=== PATIENT | male | born 1970 | race Caucasian/White ===

== ENCOUNTER 2018-11-13 11:11 | Emergency (ER) | payer MEDICAID ==
[~2018-11-13 11:11] MED LIST: CELEXA20 MG PO; PRINIVIL10 MG PO
[2018-11-13 11:44] VITALS: BP 135/85; BMI 57.7
[2018-11-13] MEDS ORDERED: BAYER CHEWABLE81 MG PO (11:47)
[2018-11-13] MEDS ORDERED: ZANTAC300 MG PO (11:47)
[2018-11-13] MEDS ORDERED: VITAMIN D250000 UNIT PO (11:47)
[2018-11-13] MEDS ORDERED: PREVALITE POWD231 GM PO (11:48)
[2018-11-13] MEDS ORDERED: CLARITIN 10 MG10 MG PO (11:48)
[2018-11-13 12:18] LABS: BASOPHILS 0.8 % (0-2); EOSINOPHILS 2.4 % (0-7); HEMATOCRIT 43.8 % (42.0-54.0); HEMOGLOBIN 15.1 g/dL (13.5-17.5); IMMATURE GRANULOCYTES 1.7 % (0-5); LYMPHOCYTES 35.6 % (15-50); MCH 32.1 pg (26.0-34.0); MCHC 34.5 g/dL (31.0-37.0); MCV 93.2 fL (80.0-100.0); MEAN PLATELET VOLUME 9.6 fL (7.4-10.4); MONOCYTES 7.2 % (2-11); NEUTROPHILS 52.3 % (40-80); PLATELET COUNT 164 10x3/uL (130-400); RDW 12.8 % (11.5-14.5); WBC 7.1 10x3/uL (4.8-10.8)
[2018-11-13 12:32] LABS: ALBUMIN 3.4 g/dL (3.4-5.0); ALKALINE PHOSPHATASE 69 U/L (46-116); ALT (SGPT) 74 U/L (10-68); BILIRUBIN - TOTAL 0.38 mg/dL (0.2-1.3); CALC OSMOLALITY 274 mosm/kg (275-300); CALCIUM 9.2 mg/dL (8.5-10.1); CARBON DIOXIDE 27.9 mmol/L (21.0-32.0); CHLORIDE - SERUM 103 mmol/L (98-107); CREATININE - SERUM 1.1 mg/dL (0.6-1.3); GLUCOSE 98 mg/dL (74-106); POTASSIUM - SERUM 4.4 mmol/L (3.5-5.1); SODIUM 138 mmol/L (136-145); UREA NITROGEN 11 mg/dL (7-18); eGFR NON AFRICAN AMERICAN 75 mL/min (90-120)
[2018-11-13 14:28] LABS: APPEARANCE CLEAR (CLEAR); COLOR YELLOW (YELLOW); GLUCOSE NEGATIVE (NEGATIVE); KETONE NEGATIVE (NEGATIVE); NITRITE NEGATIVE (NEGATIVE); PROTEIN NEGATIVE (NEGATIVE); UROBILINOGEN NORMAL (NORMAL)
[2018-11-13 14:29] LABS: BILIRUBIN NEGATIVE (NEGATIVE)
[2018-11-13] MEDS ORDERED: VIBRAMYCIN 100100 MG PO (15:26)
== END 2018-11-13 16:14 | disposition home or self-care (01) ==
LOC: D.ER 11:11
PROVIDERS: Emergency Medicine
DX: R50.9 Fever, unspecified (principal)

== ENCOUNTER 2019-08-10 09:19 | Outpatient (CLI) | payer MEDICAID ==
[~2019-08-10] VITALS: Ht 180.3 cm; Wt 177.3 kg
--- NOTE | ~2019-08-10 | HEMODYNAMI ---
PATIENT:LULÚ NAJERA JR MEDICAL RECORD: [id number] : 66 LOCATION:D.CAT ADMISSION DATE: 08/10/19 Generatedon:08/10/201911:44 Patient name: LULÚ NAJERA Patient #: [id number] SSN: [id number] : 1970 Date of study: 08/10/2019 Page: Of Hemodynamic Procedure Report Patient Data Patient Demographics Procedure consent was obtained First Name: LULÚ Gender: Male Last Name: DANIA Suffix: Jr Zelaya Initial: ANIL : 1970 Patient #: [id number] Age: 48 year(s) Race: SSN: [id number] Additional ID: [id number] Contact details [address]: [address] [place] [address] State: [place] City: [place] Zip code: [address] Past Medical History History of disease Date Diagnosis Comments CAD Allergies Allergen Reaction Date Comments Reported Other allergy 08/10/2019 OMEPRAZOLE Admission Admission Data Admission Date: 08/10/2019 Admission Time: 9:19 Arrival Date: 08/10/2019 Arrival Time: 0:00 Admit Source: Other Insurance Payor: Medicaid [facility] #: [id number] Height (in.): 70.87 BSA: 2.8 (m2) Height (cm.): 180 BMI: 54.63 (kg/m2) Weight (lbs.): 390.22 Weight (kg.): 177 Lab Results Lab Result Date: 08/10/2019 Lab Result Time: 11:11 Biochemistry Name Units Result Min Max BUN mg/dl 15 --(--*-)-- 7 18 Creatinine mg/dl 1.1 --(--*-)-- 0.6 1.3 eGFR ml/min 75 *-(----)-- 90 120 NONAFRICAN CBC Name Units Result Min Max Hematocrit % 46.1 --(-*--)-- 42 54 Hemoglobin g/dl 15.2 --(-*--)-- 13.5 17.5 Procedure Procedure Types Cath Procedure Diagnostic Procedure [facility] w/Coronaries Sedation Charges Moderate Sedation up to 15 minutes Procedure Description Procedure Date Procedure Date: 08/10/2019 Procedure Start Time: 11:31 Procedure End Time: 11:41 Procedure Staff Name Function Awa Bartlett RT Monitor Merari Dobson RT Scrub Marce Walls RN Nurse Elmo Hua MD Performing Physician Procedure Data Cath Procedure Fluoroscopy Diagnostic fluoroscopy Total fluoroscopy Time: 1.6 time: 1.6 min min Diagnostic fluoroscopy Total fluoroscopy dose: dose: 340.89 mGy 340.89 mGy Contrast Material Contrast Material Type Amount (ml) Isovue 300 47 Entry Location Entry Primary Successful Side Size Upsize Upsize Entry Closure Hein ccessful Closure Location (Fr) 1 (Fr) 2 (Fr) Remarks Device Remarks Radial Right 6 Fr Mechanical artery Short Compression Estimated blood loss: 10 ml Diagnostic catheters Device Type Used For End Catheter Placement DIAGNOSTIC Cascade 110cm 5 Procedure Fr catheter ([id number]) DIAGNOSTIC AR2 MOD 5 Fr Procedure catheter ([id number]) Procedure Complications No complications Procedure Medications Medication Administration Route Dosage 0.9% NaCl I.V. 100 ml/hr Oxygen etCO2 Nasal cannula 2 l/min Lidocaine 2% added to field 20 Heparin Flush Bag added to field 2 bags (1000units/500ml NS) Radial Cocktail added to field 1 syringe (Verapamil 2mg/Nitro 400mcg/Heparin 1500units) Versed I.V. 2 mg Fentanyl I.V. 50 mcg Versed I.V. 2 mg Fentanyl I.V. 50 mcg Versed I.V. 1 mg Hemodynamics Rest BSA: 2.8 (m2) HGB: 15.2 (g/dl) O2 Consumption: Estimated: 341.73 (ml/min) O2 Con sumption indexed: Estimated:122.05 (ml/min/m) Heart Rate: 76 (bpm) Snapshots Pre Cath Intra NCS Post Cath Vital Signs Time Heart Resp SPO2 etCO2 NIBP Rhythm Pain Sedation Rate (ipm) (%) (mmHg) (mmHg) Status Level (bpm) 11:08:04 81 17 100 39.6 126/74(93) NSR 0 (11) 10(A) , No pain 11:12:26 78 16 100 38.8 116/76(96) NSR 0 (11) 10(A) , No pain 11:16:44 81 17 97 41.1 114/72(91) NSR 0 (11) 10(A) , No pain 11:21:00 86 14 98 29.7 118/64(88) NSR 0 (11) 10(A) , No pain 11:25:20 80 13 97 39.6 109/65(89) NSR 0 (11) 10(A) , No pain 11:29:32 85 13 96 32.7 117/62(89) NSR 0 (11) 10(A) , No pain 11:33:53 88 12 96 37.3 94/54(72) NSR 0 (11) 10(A) , No pain 11:38:02 91 19 97 38.1 103/61(79) NSR 0 (11) 10(A) , No pain 11:42:14 84 21 93 40.4 106/64(83) NSR 0 (11) 10(A) , No pain Medications Time Medication Route Dose Verified Delivered Reason Notes E ffectiveness by by 11:06:59 0.9% NaCl I.V. 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 2 mg Elmo Marce for Melita Walls sedation RN 11:25:53 Fentanyl I.V. 50 mcg Elmo Marce for Melita Walls sedation RN 11:31:24 Versed I.V. 2 mg Elmo Marce for Melita Walls sedation RN 11:31:31 Fentanyl I.V. 50 mcg Elmo Marce for Melita Walls sedation RN 11:36:39 Versed I.V. 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 10:38:27 Merari Bronson RT(R) sent for patient. Start room use. 10:38:30 Time tracking: Regular hours (M-F 7:00 - 5:00) 10:38:37 H&P Date Dictated: 08/10/2019 Within 30 days and on chart.. 10:43:17 Patient allergic to Other allergyOMEPRAZOLE 10:43:25 Insurance Payor : Medicaid 10:43:35 Patient Height : 70.87 inches 10:43:37 Patient Weight : 390.22 lbs 10:44:05 Lab Result : Hemoglobin 15.2 g/dl 10:44:05 Lab Result : Hematocrit 46 % 10:44:18 Is the patient allergic to Iodine/contrast media? No. 10:44:19 Was the patient premedicated? N/A 10:44:32 Is patient on blood thinner?No 10:44:39 ACC The patient was administered the following blood thiners within the last 24 hours: None 10:44:41 Patient diabetic? No. 10:44:43 If diabetic: On Metformin? N/A 10:45:08 Stress Test: yes; abnormal FIXED PERFUSION DEFECT INFERIORLY 11:06:50 Vital chart was started 11:06:59 0.9% NaCl 100 ml/hr I.V. was administered by Marce Walls RN; used for procedure; Verbal order read back and verified. 11:07:08 Oxygen 2 l/min etCO2 Nasal cannula was administered by Marce Walls RN ; used for procedure; Verbal order read back and verified. 11:07:13 Lidocaine 2% 20ml vial added to field was administered by Elmo Hua MD; for local anesthetic; Verbal order read back and verified. 11:07:17 Heparin Flush Bag (1000units/500ml NS) 2 bags added to field was administered by Elmo Hua MD; used for procedure; Verbal order read back and verified. 11:07:32 Radial Cocktail (Verapamil 2mg/Nitro 400mcg/Heparin 1500units) 1 syring e added to field was administered by Elmo Hua MD; used for procedure; Verbal order read back and verified. 11:09:59 Patient received from Pre/Post Procedure Room to CCL 3 Alert and oriented. Tansferred to table in Supine position. 11:10:08 Plan of Care:Hemodynamics will remain stable., Cardiac rhythm will remain stable., Comfort level will be maintained., Respiratory function will remain adequate., Patient/ family verbilizes understanding of procedure., Procedure tolerated without complication., Recovers from procedure without complications.. 11:10:11 Warm blankets applied, and bry hugger turned on for patient comfort. 11:10:12 Correct patient and procedure confirmed by team. 11:10:12 ECG and BP/O2 sat monitors applied to patient. 11:10:14 Baseline sample Acquired. 11:10:20 Rhythm: sinus rhythm 11:10:23 Full Disclosure recording started 11:10:24 - 11:10:25 Pre-procedure instructions explained to patient. 11:10:26 Pre-op teaching completed and patient verbalized understanding. 11:10:28 Family in waiting room. 11:10:32 Patient NPO since Midnight. 11:13:25 Lab Result : BUN 15 mg/dl 11:13:25 Lab Result : Creatinine 1.1 mg/dl 11:13:25 Lab Result : eGFR NONAFRICAN 75 ml/min 11:13:25 Lab Result : Hemoglobin 15.2 g/dl 11:13:25 Lab Result : Hematocrit 46.1 % 11:13:35 Lab results completed and on chart. 11:13:40 ----Pre-sedation anethsthesia assessment.---- 11:13:44 Previous problem with sedation/anesthesia? No ? 11:13:48 Snore? Yes 11:14:08 Sleep apnea? Yes 11:14:11 Deviated septum? No 11:14:14 Opens mouth fully? Yes 11:14:17 Sticks out tongue? Yes 11:14:25 Airway obstruction? Yes CPAP AT NIGHT 11:14:29 Dentures? No ? 11:14:34 Pre procedure: right dorsailis pedis pulse 2+ Normal; easily identifiable; not easily obliterated 11:14:46 Modified Hao's test Ulnar > 7 seconds. 11:14:56 IV patent on arrival in left forearm with 0.9% NaCl at [facility]. 11:15:09 Right Radial & Right Groin area was prepped with chlora-prep and draped in sterile fashion 11:15:11 Alarms reviewed by R. N. 11:15:11 Sharps counted by scrub and verified by R.N. 11:18:16 Risk of Mortality: 0.3 11:18:21 Risk of blood transfusion: 1.1 11:18:26 Risk of VINCE: 9.7 11:18:37 Use device set Radial Dx or PCI 11:18:38 ACIST Syringe (82966) opened to sterile field. 11:18:39 Medline Cath Pack ([id number]) opened to sterile field. 11:18:40 Bag Decanter (2002S) opened to sterile field. 11:18:40 ACIST Hand Control (71567) opened to sterile field. 11:18:41 ACIST Manifold (63340) opened to sterile field. 11:18:42 Tegaderm 4 x 4 (1626W) opened to sterile field. 11:18:43 MBrace Wrist Support ([id number]) opened to sterile field. 11:18:45 EMERALD Guide Wire (350-970) opened to sterile field. 11:18:45 SHEATH 6FR RAIN (9969174) opened to sterile field. 11:22:32 Zero performed for pressure channel P1 11:25:12 Physician arrived 11:25:13 --------ALL STOP TIME OUT------ 11:25:13 Final Timeout: patient, procedure, and site verified with staff and physician. All members of the team are in agreement. 11:25:17 Right Radial & Right Groin site verified by team. 11:25:27 Fire Safety Assessment: A--An alcohol-based skin anteseptic being used preoperatively., C--Open oxygen or nitrous oxide is being used., D--An ESU, laser, or fiber-optic light is being used. 11:25:32 Physical assessment completed. ASA score P 2 - A patient with mild systemic disease as per Elmo Hua MD. 11:25:40 2) 60-89 Mildly reduced kidney function, and other findings (as for stage 1) point to kidney disease. 11:25:45 Maximum allowable contrast dose (3.7 X eGFR X 0.75)208 ml. 11::48 Versed 2 mg I.V. was administered by Marce Walls RN; for sedation; Verbal order read back and verified. 11::52 Sedation plan: IV Moderate Sedation Medication:Versed, Fentanyl 11::53 Fentanyl 50 mcg I.V. was administered by Marce Walls RN; for sedation ; Verbal order read back and verified. 11::48 Arrival Date: 08/10/2019 12:00:00 AM 11:27:04 Admit Source: Other 11::56 ACC Patient presents with Stable Angina CCS Anginal Class 3--Marked limitation of physical activity, angina occurs with ordinary activity.. 11:29:27 ACCPatient has been prescribed/administered the following anti-anginal medication within the last 2 weeks: LIV-Inhibitor 11::24 Versed 2 mg I.V. was administered by Marce Walls RN; for sedation; Verbal order read back and verified. 11:31:29 Procedure started. 11:31:31 Fentanyl 50 mcg I.V. was administered by Marce Walls RN; for sedation ; Verbal order read back and verified. 11:31:37 Local anesthetic to right radial artery with Lidocaine 2% by Elmo Hua MD.INITIAL ACCESS ONLY 11:32:41 A 6 Fr Short sheath was inserted into the Right Radial artery 11:33:05 A DIAGNOSTIC Cascade 110cm 5 Fr catheter ([id number]) was advanced over the wire and used for Procedure. 11:33:34 LV gram done using MARTINEZ 11:33:45 Injector settings: Ml/sec: 5, Volume: 15, 11:34:05 EF : 65 % 11:34:17 LCA angiography performed. 11:34:23 Injector settings: Ml/sec: 3, Volume: 6, 11:35:46 Catheter removed. 11:36:12 A DIAGNOSTIC AR2 MOD 5 Fr catheter ([id number]) was advanced over the wire and used for Procedure. 11:36:38 RCA angiography performed. 11:36:39 Versed 1 mg I.V. was administered by Marce Walls RN; for sedation; Verbal order read back and verified. 11:36:52 Injector settings: Ml/sec: 3, Volume: 6, 11:37:11 ACCDominant side:Right 11:37:20 TR BAND Large ([id number]) opened to sterile field. 11:37:29 Catheter removed. 11:37:46 Sheath removed intact; hemostasis achieved with Mechanical Compression to the Right Radial artery. 11:37:51 Procedure ended.(Physican Out) 11:38:00 Contrast amount:Isovue 300 47ml. 11:38:03 Maximum allowable dose exceeded? No. 11:38:14 Fluoroscopy time 01.60 minutes. 11:38:32 Fluoroscopy dose: 340.89 mGy 11:38:32 Flurop Dose total: 340.89 11:38:44 Dose Area Product 2228.28 mGy/cm. 11:38:48 Sharps counted by scrub and verified by R.N. 11:38:55 Insertion/operative site no bleeding no hematoma. 11:39:00 [place] band inflated with 11cc of air. 11:39:09 Post right radial artery:stable 11:39:14 Post Procedure Pulses reassessed and unchanged 11:39:25 Post-procedure physical assessment completed. ASA score P 2 - A patient with mild systemic disease as per Elmo Hua MD. 11:39:31 Post procedure rhythm: unchanged. 11:39:43 Estimated blood loss: 10 ml 11:39:45 Post procedure instruction explained to patient.Patient verbalizes understanding. 11:39:47 Patient needs reinforcement of post procedure teaching. 11:40:29 Procedure type changed to Cath procedure, Diagnostic procedure, LHC, LH C w/Coronaries, Sedation Charges, Moderate Sedation up to 15 minutes 11:40:32 Procedure and supply charges have been captured, reviewed, submitted an d are correct. 11:41:27 Procedure Complication : No complications 11:41:31 Vital chart was stopped 11:41:34 [facility] Findings: mild to moderate CAD (<70%) 11:41:38 Operative report dictated upon procedure completion. 11:41:39 See physician's report for complete and final results. 11:41:41 Report given to Pre/Post Procedure Room. 11:41:45 Patient transfered to Pre/Post Procedure Room with Stretcher. 11:41:48 Procedure ended. 11:41:48 Full Disclosure recording stopped 11:41:50 End room use (Document Last) Device Usage Item Name Manufacture Quantity Catalog Hospital Part Current Minima l Lot# / Number Charge Number Stock Stock Serial# Code ACIST Acist 1 [id number] [id number] 20 Syringe Medical (54030) Systems Inc Medline Medline 1 [id number] 632921 55720 449215 5 Cath Pack ([id number]) Bag Microtek 1 2001S 173498 28326 271630 5 Decanter Medical Inc. () ACIST Hand Acist 1 09103 821864 165240 707583 5 Control Medical (50112) Systems Inc ACIST Acist 1 66588 001272 321430 085158 5 Manifold Medical (33371) Systems Inc Tegaderm 4 3M 1 1626W 528993 583461 056026 5 x 4 (1626W) MBrace Advanced 1 140-0250-00 804726 96693 692560 5 Wrist Vascular Support Dynamics ([id number]) EMERALD Cardinal 1 502-455 028900 601295 615581 5 Guide Wire Health (502-455) SHEATH 6FR Cardinal 1 [id number] 791355 8866977 904121 5 [facility] (9427192) DIAGNOSTIC Terumo 1 40-5013 404569 147135 229853 5 Cascade 110cm 5 Fr catheter (011799) DIAGNOSTIC Cardinal 1 [id number] 672018 891666 943863 20 AR2 MOD 5 Health Fr catheter (276157F) TR BAND Terumo 1 [id number] 653898 980603 091605 40 Large ([id number]) Signature Audit [place] Stage Time Signature Unsigned Intra-Procedure 08/10/2019 Awa 11:43:13 AM Tri RT(R) (CV) Intra-Procedure 08/10/2019 Marce Walls 11:43:54 AM RN Intra-Procedure 08/10/2019 Elmo Hua 11:44:25 AM [facility] [address] [place] [address]
--- NOTE | ~2019-08-10 | OP ---
PATIENT NAME: LULÚ NAJERA JR MEDICAL RECORD: [id number] :66 LOCATION:D.CAT ADMISSION DATE: SURGEON: CLIVE ANGELA MD DATE OF OPERATION: 08/10/2019 DATE OF SERVICE: 08/10/2019 PROCEDURES: 1. Left heart catheterization. 2. Selective coronary angiography. 3. Left ventriculogram. INDICATION: Angina, coronary artery disease, abnormal nuclear stress test. PROCEDURE IN DETAIL: After informed consent was obtained and after a detailed description of risks, benefits as well as alternative therapies, the patient elected to proceed with angiogram and heart catheterization. The right radial area was prepped and draped in normal sterile fashion. Right radial artery was cannulated via modified Seldinger technique with placement of 5-Mohawk sheath. All catheters exchanged through this sheath. FINDINGS: Left ventriculogram was performed in standard 30-degree MARTINEZ view, reveals good cardiac wall motion, ejection fraction estimated at 60%. SELECTIVE CORONARY ANGIOGRAPHY: Left main, left anterior descending, left circumflex, right coronary are all smooth-walled vessels with no angiographic evidence of coronary artery disease. OVERALL IMPRESSION: 1. No angiographic evidence of coronary artery disease. 2. Normal left heart pressures. 3. Normal left ventricular systolic function. Chest pain is noncardiac in etiology. No further cardiac workup needs to be ascertained. TRANSINT:[id number] Voice Confirmation ID: [id number] DOCUMENT ID: [id number] CLIVE ANGELA MD CC: [id number] DICTATION DATE: 08/10/19 1141 SENIOR VICE PRESIDENT: 08/10/19 1552 DEP CLI 08/10/19 [id number] [place] [address]
[~2019-08-10 09:19] MED LIST changes: +BAYER CHEWABLE81 MG PO; +CLARITIN 10 MG10 MG PO; +PREVALITE POWD231 GM PO; +VIBRAMYCIN 100100 MG PO; +VITAMIN D250000 UNIT PO; +ZANTAC300 MG PO
[2019-08-10] MEDS ORDERED: BUPROPION HCL150 M1 PO (10:00)
[2019-08-10] MEDS ORDERED: PREVALITE POWD231 GM PO (10:01)
[2019-08-10 10:11] VITALS: BP 151/80; Ht 180.3 cm; Wt 177.3 kg
[2019-08-10 10:34] LABS: HEMATOCRIT 46.1 % (42.0-54.0); HEMOGLOBIN 15.2 g/dL (13.5-17.5); LYMPHOCYTES 39.2 % (15-50); MCH 30.4 pg (26.0-34.0); MCV 92.2 fL (80.0-100.0); NEUTROPHILS 50.1 % (40-80); PLATELET COUNT 235 10x3/uL (130-400); RDW 12.2 % (11.5-14.5); WBC 7.8 10x3/uL (4.8-10.8)
[2019-08-10 10:56] LABS: ALT (SGPT) 38 U/L (10-68); CALC OSMOLALITY 282 mosm/kg (275-300); CALCIUM 9.1 mg/dL (8.5-10.1); CARBON DIOXIDE 27.4 mmol/L (21.0-32.0); CHLORIDE - SERUM 106 mmol/L (98-107); CHOL - HDL RATIO 4.4 ratio (2.3-4.9); CHOLESTEROL, TOTAL 159 mg/dL (0-200); CREATININE - SERUM 1.1 mg/dL (0.6-1.3); GLUCOSE 89 mg/dL (74-106); HDL CHOLESTEROL 36 mg/dL (32-96); LDL CHOLESTEROL 58 mg/dL (0-100); LDL-HDL RATIO 1.6 ratio (1.5-3.5); POTASSIUM - SERUM 4.4 mmol/L (3.5-5.1); SODIUM 142 mmol/L (136-145); TRIGLYCERIDE 325 mg/dL (30-200); UREA NITROGEN 15 mg/dL (7-18); eGFR NON AFRICAN AMERICAN 75 mL/min (90-120)
--- NOTE | 2019-08-10 11:50 | NUR ---
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 MONITORS ESTAB. SEE LOADING SUPERVISOR. FAMILY AT BS. ALARMS ON AND C/L IN REACH.
--- NOTE | 2019-08-10 12:05 | NUR ---
R WRIST SITE C/D/I, NO S/S BLEEDING OR HEMATOMA. BRISK CAP REFILL. FAMILY AT BS. PT DENIES NEEDS.
--- NOTE | 2019-08-10 12:35 | NUR ---
R WRIST SITE C/D/I. PT REPOSITIONED UP IN BED. GIVEN SPRITE PER REQUEST. VSS. FAMILY AT .
--- NOTE | 2019-08-10 12:45 | NUR ---
3CC AIR REMOVED FROM TR BAND, NO S/S BLEEDING OR HEMATOMA.
--- NOTE | 2019-08-10 13:02 | NUR ---
TOTAL OF 5CC REMOVED FROM TR BAND. NO S/S BLEEDING. VSS.
--- NOTE | 2019-08-10 13:15 | NUR ---
ALL AIR REMOVED FROM TR BAND, NO S/S BLEEDING OR HEMATOMA. PT GIVEN SANDWICH TRAY PER REQUEST. VSS. C/L IN REACH.
--- NOTE | 2019-08-10 13:32 | NUR ---
R WRIST SITE C/D/I, NO S/S BLEEDING OR HEMATOMA. L PIV D/C'D INTACT, DSG APPLIED. VSS.
--- NOTE | 2019-08-10 13:35 | NUR ---
ALL D/C INSTRUCTIONS REVIEWED AND PT ALLOWED UP TO GET DRESSED.
--- NOTE | 2019-08-10 13:45 | NUR ---
DR. ANGELA IN TALK TO PT AND , PLAN FOR PT TO FOLLOW UP WITH DR. MOREJON. PT D/C'D VIA WC TO PRIVATE VEHICLE WITH BELONGINGS AND PAPER WORK.
== END 2019-08-10 13:45 | disposition home or self-care (01) ==
LOC: D.CATH 09:19
PROVIDERS: ATTEND Internal Medicine Interventional Cardiology
DX: I25.119 Atherosclerotic heart disease of native coronary artery with unspecified angina pectoris (principal); R94.39 Abnormal result of other cardiovascular function study; R07.9 Chest pain, unspecified; I10 Essential (primary) hypertension; E78.5 Hyperlipidemia, unspecified; R06.09 Other forms of dyspnea